=== PATIENT | female | born 1935 | race Caucasian/White ===

== ENCOUNTER 2017-03-02 23:07 | Emergency (ER) | payer MEDICARE, OTHER ==
[~2017-03-02] VITALS: Ht 165.1 cm; Wt 71.2 kg
[2017-03-03 00:27] LABS: BLOOD UREA NITROGEN 20 mg/dL (7-18)
[2017-03-03 00:43] VITALS: BP 128/81
== END 2017-03-03 01:01 | disposition home or self-care (01) ==
LOC: ED 23:59
DX: N30.01 Acute cystitis with hematuria (principal); I10 Essential (primary) hypertension; Z87.891 Personal history of nicotine dependence
CPT/HCPCS: 36415; 80048; 81001; 82040; 85025; 87077; 87086; 87186; 99284